=== PATIENT | female | born 2000 | race Caucasian/White ===

== ENCOUNTER 2021-06-20 23:58 | Emergency (ER) | payer BC, OTHER ==
--- NOTE | 2021-06-21 00:17 | EDM.PDOC ---
ED HPI GENERAL MEDICAL PROBLEM - General Chief Complaint: SEMI DRIVER Problem Stated Complaint: NAUSEA, DIZZINESS, LT FOOT PAIN Time Seen by Provider: 06/21/21 00:00 Source of Information: Reports: Patient History Limitations: Reports: No Limitations - History of Present Illness INITIAL COMMENTS - FREE TEXT/NARRATIVE: 21-year-old female presents for multiple complaints. Patient states that she thinks she might be . Today she began to develop diffuse abdominal pain associated with nausea and a couple episodes of emesis. She then noted vaginal bleeding. Patient also states that she stepped on something on her left foot yesterday and it hurts. She does not know what she stepped on. Abdomen Pain Score (Numeric/FACES): 8 - Related Data Allergies Allergy/AdvReac Type Severity Reaction Status Date / Time Sulfa (Sulfonamide Allergy Hives Verified 06/21/21 00:11 Antibiotics) Home Meds: Home Meds Ondansetron [Zofran ODT] 4 mg PO Q6H PRN #12 tab.dis 06/21/21 [Rx] Past Medical History HEENT History: Reports: Impaired Vision Cardiovascular History: Reports: Hypertension Respiratory History: Reports: Asthma Genitourinary History: Reports: Other (See Below) Other Genitourinary History: UTI Psychiatric History: Reports: Anxiety - Past Surgical History HEENT Surgical History: Reports: Adenoidectomy Social & Family History - Family History Family Medical History: No Pertinent Family History Endocrine/Metabolic: Reports: Diabetes, type II - Tobacco Use Second Hand Smoke Exposure: No - Caffeine Use Caffeine Use: Reports: None - Recreational Drug Use Recreational Drug Use: No ED ROS GENERAL - Review of Systems Review Of Systems: Comprehensive ROS is negative, except as noted in HPI. ED EXAM, GENERAL - Physical Exam Exam: See Below Exam Limited By: No Limitations General Appearance: Alert, WD/WN, No Apparent Distress Ears: Hearing Grossly Normal Throat/Mouth: Normal Voice, No Airway Compromise Head: Atraumatic, Normocephalic Respiratory/Chest: No Respiratory Distress, Lungs Clear, Normal Breath Sounds, No Accessory Muscle Use Cardiovascular: Normal Peripheral Pulses, Regular Rate, Rhythm GI/Abdominal: Soft, Non-Tender, Other (Morbidly obese) Extremities: Normal Inspection, Other (area of TTP/redness/palpable FB in dorsum of L foot) Neurological: Alert, Normal Cognition, Normal Gait Psychiatric: Normal Affect, Normal Mood Skin Exam: Warm, Dry, Intact, Normal Color Course - Vital Signs Last Recorded V/S: Last Vital Signs Temp 97.9 F 06/21/21 00:09 Pulse 102 H 06/21/21 00:09 Resp 20 06/21/21 00:09 BP 135/90 06/21/21 00:09 Pulse Ox 97 06/21/21 00:09 - Orders/Labs/Meds Orders: Active Orders 24 hr Category Date Time Status Saline Lock Insert [OM.PC] Stat Oth 06/21/21 00:20 Ordered Labs: Laboratory Tests 06/21/21 06/21/21 06/21/21 Range/Units 00:15 00:15 00:30 WBC 6.48 (4.0-11.0) K/uL RBC 4.71 (4.30-5.90) M/uL Hgb 13.2 (12.0-16.0) g/dL Hct 39.6 (36.0-46.0) % MCV 84.1 (80.0-98.0) fL MCH 28.0 (27.0-32.0) pg MCHC 33.3 (31.0-37.0) g/dL RDW Std Deviation 36.5 (28.0-62.0) fl RDW Coeff of Pia 12 (11.0-15.0) % Plt Count 142 L (150-400) K/uL MPV 11.50 (7.40-12.00) fL Neut % (Auto) 50.2 (48.0-80.0) % Lymph % (Auto) 35.5 (16.0-40.0) % [place] % (Auto) 8.5 (0.0-15.0) % Eos % (Auto) 5.6 (0.0-7.0) % Baso % (Auto) 0.2 (0.0-1.5) % Neut # (Auto) 3.3 (1.4-5.7) K/uL Lymph # (Auto) 2.3 (0.6-2.4) K/uL [place] # (Auto) 0.6 (0.0-0.8) K/uL Eos # (Auto) 0.4 (0.0-0.7) K/uL Baso # (Auto) 0.0 (0.0-0.1) K/uL Sodium (136-145) mmol/L Potassium (3.5-5.1) mmol/L Chloride (98-107) mmol/L Carbon Dioxide (21.0-32.0) mmol/L BUN (7.0-18.0) mg/dL Creatinine (0.6-1.0) mg/dL Est Cr Clr Drug Dosing mL/min Estimated GFR (MDRD) ml/min Glucose (74-106) mg/dL Calcium (8.5-10.1) mg/dL Total Bilirubin (0.2-1.0) mg/dL AST (15-37) IU/L ALT (14-63) IU/L Alkaline Phosphatase (46-116) U/L Total Protein (6.4-8.2) g/dL Albumin (3.4-5.0) g/dL Globulin (2.6-4.0) g/dL Albumin/Globulin Ratio (0.9-1.6) Lipase (73-393) U/L Urine Color YELLOW Urine Appearance CLEAR Urine pH 6.0 (5.0-8.0) Ur Specific [place] 1.020 (1.001-1.035) Urine Protein 30 H (NEGATIVE) mg/dL Urine Glucose (UA) NEGATIVE (NEGATIVE) mg/dL Urine Ketones TRACE H (NEGATIVE) mg/dL Urine Occult Blood LARGE H (NEGATIVE) Urine Nitrite NEGATIVE (NEGATIVE) Urine Bilirubin SMALL H (NEGATIVE) Urine Urobilinogen 4.0 H (<2.0) EU/dL Ur Leukocyte Esterase SMALL H (NEGATIVE) Urine RBC 10-15 (0-2/HPF) Urine WBC 0-3 (0-5/HPF) Ur Epithelial Cells MODERATE (NONE-FEW) Urine Bacteria FEW (NEGATIVE) Urine HCG, Qual NEGATIVE (NEGATIVE) 06/21/21 Range/Units 01:10 WBC (4.0-11.0) K/uL RBC (4.30-5.90) M/uL Hgb (12.0-16.0) g/dL Hct (36.0-46.0) % MCV (80.0-98.0) fL MCH (27.0-32.0) pg MCHC (31.0-37.0) g/dL RDW Std Deviation (28.0-62.0) fl RDW Coeff of Pia (11.0-15.0) % Plt Count (150-400) K/uL MPV (7.40-12.00) fL Neut % (Auto) (48.0-80.0) % Lymph % (Auto) (16.0-40.0) % [place] % (Auto) (0.0-15.0) % Eos % (Auto) (0.0-7.0) % Baso % (Auto) (0.0-1.5) % Neut # (Auto) (1.4-5.7) K/uL Lymph # (Auto) (0.6-2.4) K/uL [place] # (Auto) (0.0-0.8) K/uL Eos # (Auto) (0.0-0.7) K/uL Baso # (Auto) (0.0-0.1) K/uL Sodium 138 (136-145) mmol/L Potassium 4.0 (3.5-5.1) mmol/L Chloride 101 (98-107) mmol/L Carbon Dioxide 29.7 (21.0-32.0) mmol/L BUN 9 (7.0-18.0) mg/dL Creatinine 0.8 (0.6-1.0) mg/dL Est Cr Clr Drug Dosing 79.23 mL/min Estimated GFR (MDRD) > 60.0 ml/min Glucose 100 (74-106) mg/dL Calcium 8.6 (8.5-10.1) mg/dL Total Bilirubin 0.6 (0.2-1.0) mg/dL AST 30 (15-37) IU/L ALT 30 (14-63) IU/L Alkaline Phosphatase 110 (46-116) U/L Total Protein 7.1 (6.4-8.2) g/dL Albumin 2.7 L (3.4-5.0) g/dL Globulin 4.4 H (2.6-4.0) g/dL Albumin/Globulin Ratio 0.6 L (0.9-1.6) Lipase 112 (73-393) U/L Urine Color Urine Appearance Urine pH (5.0-8.0) Ur Specific [place] (1.001-1.035) Urine Protein (NEGATIVE) mg/dL Urine Glucose (UA) (NEGATIVE) mg/dL Urine Ketones (NEGATIVE) mg/dL Urine Occult Blood (NEGATIVE) Urine Nitrite (NEGATIVE) Urine Bilirubin (NEGATIVE) Urine Urobilinogen (<2.0) EU/dL Ur Leukocyte Esterase (NEGATIVE) Urine RBC (0-2/HPF) Urine WBC (0-5/HPF) Ur Epithelial Cells (NONE-FEW) Urine Bacteria (NEGATIVE) Urine HCG, Qual (NEGATIVE) Meds: Medications Discontinued Medications Generic Name Dose Route Start Last Admin Trade Name Constantino PRN Reason Stop Dose Admin Sodium Chloride 1,000 mls @ 999 mls/hr 06/21/21 00:20 06/21/21 00:34 Normal Saline IV 06/21/21 01:20 999 mls/hr .Bolus ONE Administration Lidocaine/Epinephrine 20 ml 06/21/21 00:21 06/21/21 00:34 Lidocaine 1% With Epinephrine 1:100,000 20 Ml Mdv INJECT 06/21/21 00:22 20 ml ONETIME ONE Administration Ondansetron HCl 4 mg 06/21/21 00:20 06/21/21 00:34 Ondansetron 4 Mg/2 Ml Sdv IVPUSH 06/21/21 00:21 4 mg ONETIME ONE Administration - Re-Assessments/Exams Free Text/Narrative Re-Assessment/Exam: 06/21/21 00:22 Will get basic labs, urine study. Will give IV fluid bolus and Zofran. Will get x-ray imaging of the left foot to assess for radiopaque foreign body. 06/21/21 00:30 Urine test is negative. 06/21/21 00:59 I did perform a bedside incision and investigation for foreign body as there was a palpable small mass. Although I did not see anything removed, after this procedure, I no longer feel a palpable foreign body. Perhaps it was a small bit of scar tissue that was cut out or a very small grain of FB that was removed. Regardless the patient tolerated the procedure well. 06/21/21 01:37 Labs unremarkable. Will d/c with zofran rx and OBGYN f/u. Departure - Departure Time of Disposition: 01:37 Disposition: Home, Self-Care 01 Condition: Good Clinical Impression: Abdominal pain Qualifiers: Abdominal location: generalized Qualified Code(s): R10.84 - Generalized abdominal pain Foreign body in foot Qualifiers: Encounter type: initial encounter Laterality: left Qualified Code(s): S90.852A - Superficial foreign body, left foot, initial encounter - Discharge Information Prescriptions: Ondansetron [Zofran ODT] 4 mg PO Q6H PRN #12 tab.dis PRN Reason: Nausea Instructions: Abdominal Pain, Adult, Skin Foreign Body Referrals: PCP,None [Primary Care Provider] - Forms: ED Department Discharge Additional Instructions: Your labs in the emergency department were grossly unremarkable. Considering her symptoms I did strongly recommend following up with an SEMI DRIVER. They may consider doing advanced testing such as ultrasonography of your pelvis to screen for ovarian cysts, fibroids in the uterus, signs of endometriosis which is uterine tissue implanting outside of the uterus. All of these are relatively common causes of pelvic pain during menstruation and heavy vaginal bleeding. You were placed on the referral list for [facility], however, he was to need to call them to set up an appointment. Their information is provided below. [facility] [address] [place] [address] [phone] I did send a prescription for medication called Zofrmarva to [facility] . This medicine is used as needed for nausea. You can take this with [id number] Motrin which may help with your abdominal pain. The following information is given to patients seen in the emergency department who are being discharged to home. This information is to outline your options for follow-up care. We provide all patients seen in our emergency department with a follow-up referral. The need for follow-up, as well as the timing and circumstances, are variable depending upon the specifics of your emergency department visit. If you don't have a primary care physician on staff, we will provide you with a referral. We always advise you to contact your personal physician following an emergency department visit to inform them of the circumstance of the visit and for follow-up with them and/or the need for any referrals to a consulting specialist. The emergency department will also refer you to a specialist when appropriate. This referral assures that you have the opportunity for follow-up care with a specialist. All of these measure are taken in an effort to provide you with optimal care, which includes your follow-up. Under all circumstances we always encourage you to contact your private phys ician who remains a resource for coordinating your care. When calling for follow-up care, please make the office aware that this follow-up is from your recent emergency room visit. If for any reason you are refused follow-up, please contact the [facility] Emergency Department at and asked to speak to the emergency department charge nurse. Please follow up with your primary care physician. If you do not have a primary care physician, see below: [facility] [address] [place] [id number] [facility] [address] [place] [address] [facility] [address] [place] [id number] Sepsis Event Note (ED) - Evaluation Sepsis Screening Result: No Definite Risk - Focused Exam Vital Signs: Vital Signs Temp Pulse Resp BP Pulse Ox 06/21/21 00:09 97.9 F 102 H 20 135/90 97 - My Orders Last 24 Hours: My Active Orders 06/21/21 00:20 Saline Lock Insert [OM.PC] Stat - Assessment/Plan Last 24 Hours: My Active Orders 06/21/21 00:20 Saline Lock Insert [OM.PC] Stat
[2021-06-21] MEDS ORDERED: Ondansetron 4 MG/2 ML SDV IVPUSH ONE (00:20)
[2021-06-21] MEDS ORDERED: Sodium Chloride 0.9% 1,000 ML IV ONE (00:20)
[2021-06-21] MEDS ORDERED: Lidocaine 1% with EPINEPHrine 1:100,000 20 ML MDV INJECT ONE (00:21)
--- NOTE | 2021-06-21 00:57 | CR ---
Indication: Possible glass foreign body Technique: Two views Comparison: None Findings: Bones: Alignment is normal. No fractures or bone lesions. Joint spaces: Hammertoe deformities of the 2nd through 5th digits. Soft tissues: Soft tissue swelling without radiopaque foreign body seen. Dictated by Alfonso Moscoso MD @ 06/21/2021 12:56:29 AM (Electronically Signed)
[2021-06-21 01:34] LABS: BLOOD UREA NITROGEN,BUN 9 mg/dL (7.0-18.0); CARBON DIOXIDE,CO2 29.7 mmol/L (21.0-32.0); CHLORIDE,CL 101 mmol/L (98-107); GLUCOSE RANDOM 100 mg/dL (74-106); LIPASE 112 U/L (73-393); SODIUM,NA 138 mmol/L (136-145)
== END 2021-06-21 01:50 | disposition home or self-care (01) ==
LOC: MW.ED 23:58
DX: S90.852A Superficial foreign body, left foot, initial encounter (principal); R10.84 Generalized abdominal pain; I10 Essential (primary) hypertension; J45.909 Unspecified asthma, uncomplicated; E66.01 Morbid (severe) obesity due to excess calories; Z68.42 Body mass index [BMI] 45.0-49.9, adult; Z88.2 Allergy status to sulfonamides; W22.8XXA Striking against or struck by other objects, initial encounter
CPT/HCPCS: 10120; 36415; 73620; 80053; 81001; 81025; 83690; 85025; 96374; 99284; J2405; J7030